=== PATIENT | female | born 1965 | race Caucasian/White ===

== ENCOUNTER 2022-04-26 09:26 | Emergency (ER) | payer BC, SELFPAY ==
[2022-04-26 09:36] VITALS: BP 136/72; PULSE 72; RESP 18; TEMP 36.2; O2SAT 97; BMI 21.9
--- NOTE | 2022-04-26 09:44 | CRLHL7_ITS ---
For Patients: As a result of the Century Cures Act, medical imaging exams and procedure reports are released immediately into your electronic medical record. You may view this report before your referring provider. If you have questions, please contact your health care provider. INDICATION: Cough TECHNIQUE: Chest 1 view. COMPARISON: Chest x-ray 10/12/2019 FINDINGS: The heart is normal in size. The pulmonary vasculature is within normal limits. The lungs are clear. The bones are unremarkable. IMPRESSION: No acute process. Dictated by Gwendolyn Cooper MD @ 04/26/2022 10:09:03 AM (Electronically Signed)
--- NOTE | 2022-04-26 09:45 | ED_ITS ---
HPI - General Adult General Time Seen by Provider: 09:45 Date Seen: 04/26/22 Chief complaint: Cough Stated complaint: Pain LT side torso, Cough, congestion Time Seen by Provider: 04/26/22 09:31 Source: patient Mode of arrival: ambulatory Limitations: no limitations History of Present Illness HPI narrative: Patient is a 56 year white female smoker, who reports she has had a cough fever chills and some chest discomfort when she turns or touched her left chest earlier in the week. She is had not had pneumonia past, does not have asthma, but does smoke as mention. Not has had has not had heart disease. No chronic lung condition, no leg swelling or edema, bleeding or clotting problems. She has felt sick and she still continues to feel little bit ill she has been exposed to COVID, and wants a COVID test. No leg swelling, no skin rash no nuchal rigidity, no chest pain with exertion does describe some tenderness to her left upper chest. She does feel she has congestion in her head and has had some production in her cough. Related Data Home Medications Medication Instructions Recorded Confirmed No Known Home Medications 04/26/22 04/26/22 Allergies Allergy/AdvReac Type Severity Reaction Status Date / Time Iodinated Contrast Media Allergy Verified 04/26/22 09:39 Review of Systems Status of ROS: Reports: 6 or more systems reviewed and unremarkable except as noted in History and below Exam Narrative: Exam Narrative: Objective: Vital signs unremarkable O2 sat is 97% on room air HEENT is unremarkable Neck is supple Chest is clear no rales or wheezing slight diminished air exchange Heart rhythm regular without murmur left chest wall shows minimal tenderness to palpation, patient states that earlier in the week that would really cause pain to push on her chest Extremities are no edema neurologic nonfocal good peripheral perfusion noted Const: Vital Signs, click to edit/add: Vital Signs - 24 hr 04/26/22 09:36 Temperature 97.2 F L Pulse Rate [Right Pulse Oximeter] 72 Respiratory Rate 18 Blood Pressure [Ri ght Upper Arm] 136/72 Pulse Oximetry 97 Oxygen Delivery Me thod Room Air Course Vital Signs Vital signs: Initial Vital Signs Temperature 97.2 F L 04/26/22 09:36 Temperature Source Temporal Artery Scan 04/26/22 09:36 Pulse Rate 72 04/26/22 09:36 Respiratory Rate 18 04/26/22 09:36 Blood Pressure 136/72 04/26/22 09:36 Blood Pressure Mean 93 04/26/22 09:36 Blood Pressure Position Sitting 04/26/22 09:36 Pulse Oximetry 97 04/26/22 09:36 Oxygen Delivery Method 04/26/22 09:36 Vital Signs Temperature 97.2 F L 04/26/22 09:36 Pulse Rate 72 04/26/22 09:36 Respiratory Rate 18 04/26/22 09:36 Blood Pressure 136/72 04/26/22 09:36 Pulse Oximetry 97 04/26/22 09:36 Oxygen Delivery Method 04/26/22 09:36 Temperature 97.2 F L 04/26/22 09:36 Pulse Rate 72 04/26/22 09:36 Respiratory Rate 18 04/26/22 09:36 Blood Pressure 136/72 04/26/22 09:36 Pulse Oximetry 97 04/26/22 09:36 Oxygen Delivery Method 04/26/22 09:36 Medical Decision Making MDM Narrative Medical decision making narrative: Patient is a 48-year-old white female with history of infectious illness over the last few days, rule out COVID/influenza/RSV. Because of the chest wall pain, despite the fact that this seems infectious, for completeness all get an EKG, and do a chest x-ray to exclude pneumonia. I do not believe this constitutes PE, acute coronary syndrome, or other pathology. She gives an excellent story for infectious illness. Will check the studies as above disposition pending findings. Addendum: By my review the x-ray of the chest looks negative, her EKG shows normal sinus rhythm normal EKG no acute ST T wave changes by my read. The patient is positive for COVID. At this stage I do not think I would treat her with any additional medications, rest fluids observation her O2 sat is excellent at this point. Fluids,, isolation, off work for 5 days, return to ED if problems or concerns, update regular doctor next couple of days Lab Data Labs: Lab Results 04/26/22 Range/Units 09:44 SARS-CoV-2 (PCR) POSITIVE SARS-CoV-2 A (Negative) Influenza Type A (PCR) Negative PCR FLU A (Negative) Influenza Type B (PCR) Negative PCR FLU B (Negative) RSV (PCR) Negative PCR RSV (Negative) Discharge Plan Discharge Clinical Impression: Acute chest wall pain, Cough, COVID-19 Patient Disposition: Home, Self-Care Condition: Stable Additional Instructions: Rest off work for the next 5 days, fluids, isolation, good hand washing. Tylenol or Advil as needed for discomfort. Recheck with primary care in the next couple of days by phone, return to ED sooner problems or concerns Activity Level: Light activity Discharge Diet: Regular Prescriptions: No Action No Known Home Medications Follow Up/Referrals: Jeremy Lawton MD [Primary Care Provider] - Stand Alone Forms: Transfer To Info Instructions
[2022-04-26 10:38] LABS: PCR FLU A Negative PCR FLU A (Negative); PCR FLU B Negative PCR FLU B (Negative); PCR RSV Negative PCR RSV (Negative)
[2022-04-26 10:52] LABS: SARS PCR* POSITIVE SARS-CoV-2 (Negative)
== END 2022-04-26 11:22 | disposition home or self-care (01) ==
PROVIDERS: Emergency Provider Family Medicine; PCP Family Medicine
DX: R07.89 Other chest pain (principal); U07.1 COVID-19
CPT/HCPCS: 71045; 87502; 87634; 87635; 93005; 99284; 99285